=== PATIENT | female | born 1930 | race Caucasian/White ===

== ENCOUNTER 2016-10-07 07:45 | Emergency (ER) | payer OTHER ==
[~2016-10-07] VITALS: Ht 162.6 cm; Wt 68.0 kg
[2016-10-07 07:49] VITALS: Ht 162.6 cm; Wt 68.0 kg
[2016-10-07] MEDS ORDERED: ONDANSETRON 4 MG INJ IV STA (08:05)
[2016-10-07] MEDS ORDERED: morphine 2 MG INJ IV STA (08:05)
[2016-10-07] MEDS ORDERED: SOD CHLORIDE 0.9% 1,000 ML IV STA (08:05)
[2016-10-07] MEDS ORDERED: DIPHTH/TET/ACEL PERTUSS (ADULT) 0.5 ML VIAL IM* ONE (08:30)
--- NOTE | 2016-10-07 08:32 | RADRPT ---
PROCEDURE: XR Chest. CLINICAL INDICATION: Trauma. Left arm pain. TECHNIQUE: PA and Lateral views of the chest were obtained. COMPARISON: None. FINDINGS: The cardiomediastinal silhouette is within normal limits of size . Atherosclerotic calcification of the aorta.. .The lungs are clear without pleural effusion or focal consolidation. No pneumothorax. Degenerative changes of the glenohumeral joints with humeral head spurring bilaterally.. IMPRESSION: 1. No evidence for active cardiopulmonary disease. RPTAT:AAJJ Physician Edgar Date Time Electronically viewed and signed by Physician Edgar on 10/07/2016 08:32 MARTA/
[2016-10-07 09:24] LABS: ADD SCAN DIFF NO
[2016-10-07 09:29] LABS: BASOPHILS % 0.3 % (0.0-2.0); EOSINOPHILS % 0.2 % (0.0-7.0); HEMATOCRIT 46.1 % (37.0-47.0); HEMOGLOBIN 15.5 g/dl (12.0-16.0); LYMPHOCYTES # 1.5 10^3/ul (0.8-2.9); LYMPHOCYTES % 11.4 % (15.0-51.0); MEAN CORPUSCULAR HEMOGLOBIN 31.8 pg (29.0-33.0); MEAN CORPUSCULAR HGB CONC 33.6 g/dl (32.0-37.0); MEAN CORPUSCULAR VOLUME 94.7 fl (82.0-101.0); MEAN PLATELET VOLUME 8.8 fl (7.4-10.4); MONOCYTES % 7.8 % (0.0-11.0); NEUTROPHIL # 10.2 10^3/ul (1.6-7.5); NEUTROPHILS % 79.9 % (39.0-77.0); PLATELET COUNT 230 10^3/UL (140-415); RED BLOOD COUNT 4.87 10^6/ul (4.20-5.40); RED CELL DISTRIBUTION WIDTH 12.3 % (11.5-14.5); WHITE BLOOD COUNT 12.8 10^3/ul (4.8-10.8)
[2016-10-07 10:16] LABS: CHLORIDE 98 mmol/L (97-110); POTASSIUM 3.9 mmol/L (3.5-5.1); SODIUM 141 mmol/L (135-144)
--- NOTE | 2016-10-07 10:16 | RADRPT ---
PROCEDURE: XR left Shoulder. CLINICAL INDICATION: Trauma, fall, left arm pain. TECHNIQUE: Two views of the left shoulder are available for review. COMPARISON: None available FINDINGS: There is a transverse anatomic neck fracture of the left humerus with mild displacement. The bones are osteoporotic. The findings could represent a multi part proximal humeral fracture. The humeral head is still situated within the glenoid. There is moderate AC arthrosis. IMPRESSION: 1. Transverse anatomic neck fracture of the left humerus with mild displacement. 2. Osteoporosis. RPTAT: XX .Marshal Guillory MD, MD Date Time Electronically viewed and signed by .Marshal Guillory MD, MD on 10/07/2016 10:15 .T/
[2016-10-07 10:19] LABS: ADD UMIC YES; URINE BILIRUBIN (Dip) NEGATIVE (NEGATIVE); URINE BLOOD (Dip) 1+ (NEGATIVE); URINE COLOR LT. YELLOW (YELLOW); URINE GLUCOSE (Dip) NEGATIVE (NEGATIVE); URINE KETONES (Dip) NEGATIVE (NEGATIVE); URINE LEUKOCYTE ESTERASE (Dip) NEGATIVE (NEGATIVE); URINE NITRITE (Dip) NEGATIVE (NEGATIVE); URINE TOTAL PROTEIN (Dip) NEGATIVE (NEGATIVE); URINE UROBILINOGEN (Dip) 0.2 E.U./dL (0.1-1.0)
[2016-10-07 10:19] LABS: ALANINE AMINOTRANSFERASE 27 IU/L (13-69); ALBUMIN/GLOBULIN RATIO 1.02; ALKALINE PHOSPHATASE 73 IU/L (42-121); ANION GAP 15 (8-16); ASPARTATE AMINO TRANSFERASE 24 IU/L (15-46); BILIRUBIN,INDIRECT 0.5 mg/dl (0-1.1); BILIRUBIN,TOTAL 0.5 mg/dl (0.2-1.3); BLOOD UREA NITROGEN 14 mg/dl (7-20); CALCIUM 9.4 mg/dl (8.4-10.2); CARBON DIOXIDE 32 mmol/L (21-31); CREATININE 0.74 mg/dl (0.44-1.00); GLUCOSE 117 mg/dl (70-220); TOTAL PROTEIN 7.9 g/dl (6.1-8.1)
--- NOTE | 2016-10-07 10:20 | RADRPT ---
PROCEDURE: XR Left Elbow. CLINICAL INDICATION: Trauma, fall.. TECHNIQUE: Three views of the left elbow are available for review. COMPARISON: None available FINDINGS: No evidence for elbow fracture. There is chronic lateral epicondylitis with ossification in the reg ion of the common extensor tendon. There is a moderate joint effusion. There is olecranon enthesop athy. The bones are osteoporotic. IMPRESSION: 1. Osteoporosis. 2. No fracture is seen. 3. Degenerative arthrosis and chronic lateral epicondylitis. RPTAT: XX .Marshal Guillory MD, MD Date Time Electronically viewed and signed by .Marshal Guillory MD, on 10/07/2016 10:20 .T/
[2016-10-07 10:32] LABS: TROPONIN-I < 0.012 ng/ml (0.00-0.12)
[2016-10-07 10:35] LABS: BACTERIA,URINE RARE
[2016-10-07] MEDS ORDERED: LEVOFLOXACIN 750MG/D5W (PMX) 150 ML IVPB ONE (11:30)
[2016-10-07] MEDS ORDERED: IBUP400T22 PO (11:38)
--- NOTE | 2016-10-07 11:42 | ERD ---
ER Documentation Chief Complaint Date/Time DATE: 10/07/16 TIME: 11:39 Chief Complaint left arm pain after fall this morning no ko HPI 86-year-old woman brought in by son after fall onto her left shoulder. The episode was witnessed and he denies that there was a loss of consciousness. Patient does recall that episode. She denies recent fevers or chills, no chest pain or palpitations, no shortness of breath, no headache or blurry vision. Patient denies head or neck injury. ROS All systems reviewed and are negative except as per history of present illness. Medications Home Meds Active Scripts Ibuprofen* (Motrin*) 400 Mg Tab, 400 MG PO Q8 for PAIN AND/OR INFLAMMATION, #30 TAB Prov:CHRISTOPHER LOCKE MD 10/07/16 Allergies Allergies: Coded Allergies: No Known Allergy (Unverified , 10/07/16) PMhx/Soc Mild dementia, hypertension, arthritis FmHx Family History: No diabetes Physical Exam Vitals Vital Signs Date Time Temp Pulse Resp B/P Pulse Ox O2 Delivery O2 Flow Rate FiO2 10/07/16 12:18 99.1 87 16 169/90 96 Room Air 10/07/16 10:10 92 15 160/83 97 Room Air 10/07/16 08:00 97.4 97 16 162/85 97 Room Air 10/07/16 07:49 96.0 96 18 164/86 96 Physical Exam GENERAL: Well-developed, well-nourished, dehydrated, afebrile HEENT: Dry mucous membranes, pink conjunctiva, no cervical spine tenderness or step-off deformities, no goiter, no jaundice or icterus, extraocular movements intact without pain. No submandibular induration, and no pharyngeal erythema NEURO: Alert and oriented 3, cranial nerves II through XII intact bilaterally, pupils equal round reactive to light, no focal deficits or facial asymmetry, sensation intact distally Strength 5/5 in upper and lower extremities bilaterally CARDIAC: Regular rate and rhythm, no murmurs rubs or gallops LUNGS: Clear bilaterally no wheezing crackles or stridor ABDOMEN: Soft nontender, no guarding, no rigidity, no rebound, no psoas sign no obturator sign. Normoactive bowel sounds SKIN: Warm and dry to touch, positive skin abrasion to the bridge of the nose, or hematomas, no lacerations, no ecchymosis, no target lesions, and without ulcers EXTREMITIES: No clubbing cyanosis left proximal lateral shoulder tenderness to touch with mild ecchymosis, sensation to the axillary, median, radial, ulnar nerves are intact bilaterally, calves are bilaterally symmetrical, no Homans sign, no popliteal cord sign. Distal pulses equal and bilateral PSYCH: Normal affect without agitation or irritability Result Diagram: 10/07/1690110/07/1602 Results 24 hrs Laboratory Tests Test 10/07/16 09:02 10/07/16 09:40 Alanine Aminotransferase (ALT/SGPT) 27IU/L Albumin 4.0g/dl Albumin/Globulin Ratio 1.02 Alkaline Phosphatase 73IU/L Anion Gap 15 Aspartate Amino Transf (AST/SGOT) 24IU/L Basophils # 0.010^3/ul Basophils % 0.3% Blood Urea Nitrogen 14mg/dl Calcium Level 9.4mg/dl Carbon Dioxide Level 32mmol/L Chloride Level 98mmol/L Creatinine 0.74mg/dl Direct Bilirubin 0.00mg/dl Eosinophils # 0.010^3/ul Eosinophils % 0.2% Globulin 3.90g/dl Glucose Level 117mg/dl Hematocrit 46.1% Hemoglobin 15.5g/dl Indirect Bilirubin 0.5mg/dl Lipase 55U/L Lymphocytes # 1.510^3/ul Lymphocytes % 11.4% Mean Corpuscular Hemoglobin 31.8pg Mean Corpuscular Hemoglobin Concent 33.6g/dl Mean Corpuscular Volume 94.7fl Mean Platelet Volume 8.8fl Monocytes # 1.010^3/ul Monocytes % 7.8% Neutrophils # 10.210^3/ul Neutrophils % 79.9% Nucleated Red Blood Cells # 0.010^3/ul Nucleated Red Blood Cells % 0.0/100WBC Platelet Count 43855^3/UL Potassium Level 3.9mmol/L Red Blood Count 4.8710^6/ul Red Cell Distribution Width 12.3% Sodium Level 141mmol/L Total Bilirubin 0.5mg/dl Total Protein 7.9g/dl Troponin I < 0.012ng/ml White Blood Count 12.810^3/ul Urine Bacteria RARE Urine Bilirubin NEGATIVE Urine Clarity CLEAR Urine Color LT. YELLOW Urine Glucose NEGATIVE% Urine Hemoglobin 1+ Urine Ketones NEGATIVE Urine Leukocyte Esterase NEGATIVE Urine Microscopic RBC 2-5/HPF Urine Microscopic WBC 0-2/HPF Urine Nitrite NEGATIVE Urine Specific [place] 1.015 Urine Total Protein NEGATIVE Urine Urobilinogen 0.2 E.U./dL Urine pH 6.0 Current Medications Medications (Trade) Dose Ordered Sig/Lyndsey Route PRN Reason Start Time Stop Time Status Last Admin Dose Admin Diphtheria/ Tetanus/Acell Pertussis 0.5 ml 0.5 ml ONCE ONCE IM* 10/07/16 08:30 10/07/16 08:31 DC 10/07/16 09:16 Sodium Chloride (NS) 1,000 ml @ 1,000 mls/hr Q1H STAT IV 10/07/16 08:05 10/07/16 09:04 DC 10/07/16 09:17 Morphine Sulfate (morphine) 2 mg ONCE STAT IV 10/07/16 08:05 10/07/16 08:08 DC 10/07/16 09:16 Ondansetron HCl 4 mg 4 mg ONCE STAT IV 10/07/16 08:05 10/07/16 08:08 DC 10/07/16 09:15 Levofloxacin/ Dextrose (Levaquin 750 Mg/ D5W 150 ml (Pmx)) 150 ml @ 100 mls/hr ONCE ONCE IVPB 10/07/16 11:30 10/07/16 11:44 DC Ibuprofen (Motrin) 200 mg STK-MED ONCE .ROUTE 10/07/16 12:26 10/07/16 12:27 DC Procedures/MDM IV line was established patient was placed on clinical research monitor rhythm strip revealed a sinus rhythm at about 100 bpm with upright P and T waves. Patient was afebrile. EKG performed, read by me: 94 bpm, normal sinus rhythm, normal axis, no acute ST segment changes, narrow QRS complex, with good R-wave progression in precordial leads. I administered 1 L normal saline intravenously, morphine 2 mg IV, Zofran 4 mg IV , ibuprofen 600 mg p.o., and tetanus toxoid 0.[address] scan of the brain was performed there is negative for acute bleed mass or shift. Chest X-ray 1V Interpreted by me: Soft Tissue: No acute abnormalities Bones: No acute abnormalities Mediastinum/Cardiac Silhouette/Lungs: No acute abnormalities X-ray left shoulder 3V Interpreted by me: Bones: Acute transverse proximal left humerus fracture Joints: No dislocation Foreign body: None X-ray left elbow 3V Interpreted by me: Fat Pads: Normal Bones: No fracture Joints: No dislocation Foreign body: None I placed the left upper extremity in a sling with the elbow flexed to 90. Splint Assessment: Neurovascularly intact post splint placement with good fit. CBC and electrolytes were normal, liver function tests were normal, troponin was negative. Urine analysis was negative for infection. Differential diagnoses considered, included but not limited to acute coronary syndrome, pulmonary embolism, aortic dissection, abdominal aortic aneurysm, sepsis, stroke, meningitis, encephalitis, pneumonia, appendicitis, cholecystitis , bowel obstruction, pyelonephritis, nephrolithiasis, cystitis, as well as metabolic, hematologic, and electrolyte abnormalities. As well as abscess, cellulitis, fractures, and dislocations. Patient feels much better at this time, and vital signs are normal, symptoms have improved. I did give strict instructions to return to the ED if symptoms continue or worsen, patient will otherwise follow-up with primary care physician. Patient understood instructions and agreed to plan. Departure Diagnosis: Primary Impression: Shoulder fracture Encounter type: initial encounter Fracture type: closed Laterality: left Qualified Code: S42.92XA - Shoulder fracture, left, closed, initial encounter Condition: Good Patient Instructions: Dehydration, Fracture, Shoulder CHRISTOPHER LOCKE MD Oct 07, 2016 11:41
[2016-10-07 12:18] VITALS: BP 169/90; PULSE 87; RESP 16; TEMP 99.1
[2016-10-07] MEDS ORDERED: IBUPROFEN 200 MG TAB ONE (12:26)
--- NOTE | 2016-10-07 22:18 | RADRPT ---
PROCEDURE: CT Brain without. CLINICAL INDICATION: Fall, forehead trauma. TECHNIQUE: A CT of the brain was performed on multidetector high-resolution CT scanner utilizing a xial sections from the skull base through the vertex without contrast. The scan was reviewed in sof t tissue brain and high frequency resolution bone algorithm windows. Images were reviewed on a high -resolution PACS workstation. One or more the following does reduction techniques were utilized: Aut omated exposure control, adjustment of the mA/ or kV according to patient's size, or use of iterativ e reconstruction technique. The exam CTDI = 38.62 mGy and the DLP = 634.23 mGy-cm. COMPARISON: None available. FINDINGS: There is a 5 mm focus of hyperdensity in the peripheral posterior right superior frontal gyrus which is concerning for small focus of subarachnoid hemorrhage versus a small hemorrhagic contusion. The ventricles and sulci are mildly to moderately prominent indicative of volume loss. There is no intracranial mass effect or midline shift. No abnormal intra-axial or extra-axial fluid collections are seen. The ortiz/white matter differentiation is preserved. There are mild scattered foci of hypoattenuation in the white matter, which are nonspecific in etiol ogy but likely reflect chronic small vessel ischemic changes. There are mild intracranial vascular calcifications consistent with atherosclerosis. The visualized paranasal sinuses are essentially july ar. IMPRESSION: 1. A 5 mm focus of subarachnoid hemorrhage versus hemorrhagic contusion in the peripheral posterior right superior frontal gyrus. 2. No acute transcortical infarction or mass effect. 3. Mild intracranial atherosclerosis and chronic small vessel ischemic changes. 4. Mild to moderate generalized cerebral volume loss. Critical result: A call report was made and above findings were discussed and acknowledged by Dr. Gutierrez on 10/07/2016 10:11 PM. RPTAT: HFN .Alonso Castaneda MD, MD Date Time Electronically viewed and signed by .Alonso Castaneda MD, MD on 10/07/2016 22:18 .N/
--- NOTE | 2016-10-07 22:25 | QN ---
Documentation Comment Time: 22:10 Received a call from Radiology, regarding CT brain performed earlier today that reveals findings consistent with a small subarachnoid hemorrhage versus hemorrhagic contusion. Patient will be contacted by the charge nurse Coretta with instructions to return to the ED for follow-up and repeat CT scan. PROCEDURE: CT Brain without. CLINICAL INDICATION: Fall, forehead trauma. TECHNIQUE: A CT of the brain was performed on multidetector high-resolution CT scanner utilizing axial sections from the skull base through the vertex without contrast. The scan was reviewed in soft tissue brain and high frequency resolution bone algorithm windows. Images were reviewed on a high- resolution PACS workstation. One or more the following does reduction techniques were utilized: Automated exposure control, adjustment of the mA/ or kV according to patient's size, or use of iterative reconstruction technique. The exam CTDI = 38.62 mGy and the DLP = 634.23 mGy-cm. COMPARISON: None available. FINDINGS: There is a 5 mm focus of hyperdensity in the peripheral posterior right superior frontal gyrus which is concerning for small focus of subarachnoid hemorrhage versus a small hemorrhagic contusion. The ventricles and sulci are mildly to moderately prominent indicative of volume loss. There is no intracranial mass effect or midline shift. No abnormal intra-axial or extra-axial fluid collections are seen. The ortiz/white matter differentiation is preserved. There are mild scattered foci of hypoattenuation in the white matter, which are nonspecific in etiology but likely reflect chronic small vessel ischemic changes. There are mild intracranial vascular calcifications consistent with atherosclerosis. The visualized paranasal sinuses are essentially clear. IMPRESSION: 1. A 5 mm focus of subarachnoid hemorrhage versus hemorrhagic contusion in the peripheral posterior right superior frontal gyrus. 2. No acute transcortical infarction or mass effect. 3. Mild intracranial atherosclerosis and chronic small vessel ischemic changes. 4. Mild to moderate generalized cerebral volume loss. Critical result: A call report was made and above findings were discussed and acknowledged by Dr. Islas on 10/07/2016 10:11 PM. RPTAT: HFN .Alonso Castaneda MD, MD Date Time Electronically viewed and signed by .Alonso Castaneda MD, MD on 10/07/2016 22: 18 .N/ HERI ISLAS MD Oct 07, 2016 22:25
[2016-10-08] MEDS ORDERED: DOCU-144 PO (13:47)
[2016-10-08] MEDS ORDERED: POLY17PO6 PO (13:47)
== END 2016-10-07 12:50 | disposition home or self-care (01) ==
LOC: E/R 07:45
DX: S42.92XA Fracture of left shoulder girdle, part unspecified, initial encounter for closed fracture (principal); R40.2252 Coma scale, best verbal response, oriented, at arrival to emergency department; I10 Essential (primary) hypertension; R40.2142 Coma scale, eyes open, spontaneous, at arrival to emergency department; R40.2362 Coma scale, best motor response, obeys commands, at arrival to emergency department; G93.89 Other specified disorders of brain; W18.39XA Other fall on same level, initial encounter; Y92.9 Unspecified place or not applicable; Z23 Encounter for immunization
CPT/HCPCS: 36415; 70450; 71010; 73030; 73080; 80053; 81001; 83690; 84484; 85025; 90471; 90715; 93005; 96374; 96375; J2270; J2405; J7030; P9612; Z7502; Z7610; 81003

== ENCOUNTER 2016-10-08 12:14 | Emergency (ER) | payer OTHER ==
[~2016-10-08] VITALS: Ht 154.9 cm; Wt 71.0 kg
[~2016-10-08 12:14] MED LIST: IBUP400T22 PO
[2016-10-08 12:18] VITALS: Ht 154.9 cm; Wt 71.0 kg
[2016-10-08] MEDS ORDERED: SOD CHLORIDE 0.9% 500 ML IV STA (12:56)
--- NOTE | 2016-10-08 13:38 | RADRPT ---
PROCEDURE: CT head without Contrast CLINICAL INDICATION: Status post fall, head injury follow-up rule out bleed TECHNIQUE: Transaxial images were made through the head on a multi-slice scanner without intraveno us contrast. Coronal and sagittal images were subsequently reformatted. One or more of the following dose reduction techniques were used: - Automated exposure control. - Adjustment of the mA and/or kV according to patient size. - Use of iterative reconstruction technique. Radiation dose: CTDIvol = 37.80 mGy; DLP = 634.23 mGy-cm. COMPARISON: 10/07/2016 FINDINGS: The calvarium appears intact. The mastoid air cells and paranasal sinuses are well-aerated.. The ventricles are mildly dilated but proportionate to the prominent fissures and sulci compatible w ith moderate cortical volume loss. There is no midline shift. Patchy hypodensity is again seen within the deep periventricular white matter tracts compatible with chronic small vessel ischemic change. There is been no significant interval change to the 5 mm punctate densities seen at the high right f rontal convexity crosses for a small petechial bleed. No new bleed is identified. No mass or extraaxial fluid collection is evident. Mild atherosclerotic vascular calcification is a gain noted. IMPRESSION: 1. Since the previous CT of 10/07/2016, there has been no significant interval change with regards to the 5 mm density seen at the high right frontal convexity suspicious for a tiny intraparenchymal hemorrhage. 2. Mild diffuse cortical atrophy with chronic-appearing central small vessel ischemic change. 2. Mild atherosclerotic vascular calcification is again noted. Physician Joan Date Time Electronically viewed and signed by Physician Joan on 10/08/2016 13:38 /
[2016-10-08] MEDS ORDERED: POLY17PO6 PO (13:47)
[2016-10-08] MEDS ORDERED: DOCU-144 PO (13:47)
--- NOTE | 2016-10-08 14:00 | ERD ---
ER Documentation Chief Complaint Date/Time DATE: 10/08/16 TIME: 13:56 Chief Complaint WAS SEEN HERE FOR LT SHOULDER FX , CALLED TO COME BACK TODAY HPI This is an 86-year-old woman called back from this emergency department for reevaluation and repeat CT scan of the brain. She was seen and evaluated yesterday by me and a CT scan of the brain was performed at about 8:30 AM to rule out acute or life-threatening traumatic hemorrhage. The radiologist called and officially read the CT scan about 14 hours later as positive for a small 5 mm subarachnoid hemorrhage versus hemorrhagic contusion. Son states over the ensuing 24 hours patient has had no complaints of headache and her dizziness has mostly resolved. Yesterday's complaints included dizziness which was much more severe. He states she has no complaints of headache and only has intermittent mild to moderate left shoulder pain. She has been using ibuprofen 400 mg as prescribed. She has had no slurred speech, no weakness in her arms or legs, no other falls, no complaints of blurry vision, no neck pain or stiffness. She has also increased her oral fluid intake to maintain hydration as recommended by me yesterday. Complaints today include constipation. ROS All systems reviewed and are negative except as per history of present illness. Medications Home Meds Active Scripts Polyethylene Glycol* (Miralax*) 17 Gm Powd.pack, 17 GM PO DAILY for CONSTIPATION , #7 Prov:CHRISTOPHER LOCKE MD 10/08/16 Docusate Sodium* (Colace*) 100 Mg Capsule, 100 MG PO TID for CONSTIPATION, #30 CAP Prov:CHRISTOPHER LOCKE MD 10/08/16 Ibuprofen* (Motrin*) 400 Mg Tab, 400 MG PO Q8 for PAIN AND/OR INFLAMMATION, #30 TAB Prov:CHRISTOPHER LOCKE MD 10/07/16 Allergies Allergies: Coded Allergies: No Known Allergy (Unverified , 10/07/16) PMhx/Soc Constipation Medical and Surgical Hx: pt denies Medical Hx, pt denies Surgical Hx History of Surgery: Yes Hx Alcohol Use: No Hx Substance Use: No Hx Tobacco Use: No Smoking Status: Never smoker FmHx Family History: No diabetes Physical Exam Vitals Vital Signs Date Time Temp Pulse Resp B/P Pulse Ox O2 Delivery O2 Flow Rate FiO2 10/08/16 12:18 97.9 94 18 143/81 98 Physical Exam GENERAL: Well-developed, well-nourished, well-hydrated, in no apparent distress , looks nontoxic in appearance HEENT: Moist mucous membranes, pink conjunctiva, no cervical spine tenderness or step-off deformities, no goiter, no jaundice or icterus, extraocular movements intact without pain. No submandibular induration, and no pharyngeal erythema NEURO: Alert and oriented 3, cranial nerves II through XII intact bilaterally, pupils equal round reactive to light, no focal deficits or facial asymmetry, sensation intact distally Strength 5/5 in upper and lower extremities bilaterally CARDIAC: Regular rate and rhythm, no murmurs rubs or gallops LUNGS: Clear bilaterally no wheezing crackles or stridor ABDOMEN: Soft nontender, no guarding, no rigidity, no rebound, no psoas sign no obturator sign. Normoactive bowel sounds SKIN: Warm and dry to touch, abrasion to the bridge of the nose, contusions, or hematomas, no lacerations, no ecchymosis, no target lesions, and without ulcers EXTREMITIES: No clubbing cyanosis or edema, left upper extremity is in a sling, calves are bilaterally symmetrical, no Homans sign, no popliteal cord sign. Distal pulses equal and bilateral PSYCH: Normal affect without agitation or irritability Results 24 hrs Current Medications Medications (Trade) Dose Ordered Sig/Lyndsey Route PRN Reason Start Time Stop Time Status Last Admin Dose Admin Sodium Chloride (NS) 500 ml @ 500 mls/hr Q1H STAT IV 10/08/16 12:56 10/08/16 13:10 DC Procedures/MDM CT scan of the brain was performed and reveals the same 5 mm punctate hemorrhage concerning for either a small subarachnoid bleed versus contusion. Please refer to the radiologist dictation for full report, although we did discuss the images over the phone and he stated there were no changes. I obtain neurosurgical consultation with Dr. branch wholesale diamond broker. We spoke about the patient's symptoms yesterday and today, her CT scan findings, and the events over the last 24 hours. He stated if the CT today is not significantly changed she may safely be discharged as there will be no neurosurgical intervention required. She has already had her 24 hour observation under the care of her son who lives with her. I repeated the patient's neurologic exam just prior to discharge. She is without complaints of headache, she has no focal deficits or facial asymmetry, pupils equal round reactive to light, alert and oriented 3. Patient feels much better at this time, and vital signs are normal, symptoms have improved. I did give strict instructions to return to the ED if symptoms continue or worsen, patient will otherwise follow-up with primary care physician. Patient understood instructions and agreed to plan. Departure Diagnosis: Primary Impression: Subarachnoid bleed Additional Impression: Constipation Constipation type: unspecified constipation type Qualified Code: K59.00 - Constipation, unspecified constipation type Condition: Good Patient Instructions: Constipation (Adult) CHRISTOPHER LOCKE MD Oct 08, 2016 14:00
[2016-10-08 14:03] VITALS: BP 152/82; PULSE 92; RESP 20; TEMP 98.3
== END 2016-10-08 14:04 | disposition home or self-care (01) ==
LOC: E/R 12:14
DX: I60.9 Nontraumatic subarachnoid hemorrhage, unspecified (principal); G93.89 Other specified disorders of brain
CPT/HCPCS: 70450; Z7502; J7040

== ENCOUNTER 2016-10-15 15:31 | Emergency (ER) | payer OTHER ==
[~2016-10-15] VITALS: Wt 80.0 kg
[~2016-10-15 15:31] MED LIST changes: +DOCU-144 PO; +POLY17PO6 PO
--- NOTE | 2016-10-15 16:48 | RADRPT ---
PROCEDURE: CT Head without contrast. CLINICAL INDICATION: confused, recent fall TECHNIQUE: Continuous axial CT images were obtained from the base of skull to the vertex. No cont rast was administered. The calculated radiation dose measures 720 mGy centimeters. The CTDI measures 44 mGy COMPARISON: 10/08/2016 FINDINGS: There is mild to moderate diffuse cerebral volume loss. The ventricles are symmetric and normal in configuration. There is no mass effect or midline shift. There is no abnormal intra-axial or extra -axial fluid collection. There is no evidence of intracranial hemorrhage. There are scattered areas of decreased attenuation in the supratentorial white matter, consistent wi th mild to moderate small vessel ischemic changes. There is mild to moderate atherosclerotic vascula r calcification. The bony calvarium is intact. The orbital soft tissue contents are unremarkable. Paranasal sinuses appear clear. IMPRESSION: 1. Mild to moderate age related cerebral volume loss. Mild to moderate small vessel ischemic christy es. 2. Mild to moderate atherosclerotic vascular calcification. 3. No mass effect or acute intracranial bleed. A previous right frontal small parenchymal bleed ap pears resolved. RPTAT: HBST .Oswald Chan MD, MD Date Time Electronically viewed and signed by .Oswald Chan MD, on 10/15/2016 16:47 .T/
[2016-10-15] MEDS ORDERED: TRAM-40 PO (17:10)
[2016-10-15 17:38] LABS: ADD UMIC YES; URINE BILIRUBIN (Dip) NEGATIVE (NEGATIVE); URINE BLOOD (Dip) TRACE (NEGATIVE); URINE COLOR LT. YELLOW (YELLOW); URINE GLUCOSE (Dip) NEGATIVE (NEGATIVE); URINE KETONES (Dip) NEGATIVE (NEGATIVE); URINE LEUKOCYTE ESTERASE (Dip) 1+ (NEGATIVE); URINE NITRITE (Dip) NEGATIVE (NEGATIVE); URINE TOTAL PROTEIN (Dip) NEGATIVE (NEGATIVE); URINE UROBILINOGEN (Dip) 4.0 E.U./dL (0.1-1.0)
[2016-10-15 17:57] LABS: URINE RBCS 0-2 /HPF (0)
[2016-10-15 17:58] LABS: BACTERIA,URINE FEW; SQUAMOUS EPITHELIAL CELL,UR MODERATE
[2016-10-15] MEDS ORDERED: SENN-53 PO (18:43)
[2016-10-15] MEDS ORDERED: NITR-58 PO (18:43)
[2016-10-15] MEDS ORDERED: DOCU-144 PO (18:43)
--- NOTE | 2016-10-15 19:08 | ERD ---
ER Documentation Chief Complaint Date/Time DATE: 10/15/16 TIME: 19:05 Chief Complaint LEFT SHOULDER PAIN S/P GLF, PT TALKING EVENTS IN THE PAST, AAOX4 HPI Patient is an 86-year-old female with incontinence who presents with confusion. Please note the history and physical exam is limited secondary to the patient' s mental status. The patient was brought in by her son. She had a fall last week and broke her left shoulder. She was seen in the emergency department at that time. She did hit her head. However yesterday she started talking nonsense per the son. She has had decreased bowel movements over the past few days as well. She is taking tramadol for pain. She has had no fevers. Her primary doctor is Dr. Lazo. ROS All systems reviewed and are negative except as per history of present illness. Medications Home Meds Active Scripts Docusate Sodium* (Colace*) 100 Mg Capsule, 100 MG PO BID, #60 CAP Prov:LAURIE COLES MD 10/15/16 Sennosides* (Senna Lax*) 8.6 Mg Tablet, 1 TAB PO DAILY, #30 TAB Prov:LAURIE COLES MD 10/15/16 Nitrofurantoin Monohyd Macrocr* (Macrobid*) 100 Mg Capsr, 100 MG PO BID for 7 Days, CAP Prov:LAURIE COLES MD 10/15/16 Polyethylene Glycol* (Miralax*) 17 Gm Powd.pack, 17 GM PO DAILY for CONSTIPATION , #7 Prov:CHRISTOPHER LOCKE MD 10/08/16 Docusate Sodium* (Colace*) 100 Mg Capsule, 100 MG PO TID for CONSTIPATION, #30 CAP Prov:CHRISTOPHER LOCKE MD 10/08/16 Ibuprofen* (Motrin*) 400 Mg Tab, 400 MG PO Q8 for PAIN AND/OR INFLAMMATION, #30 TAB Prov:CHRISTOPHER LOCKE MD 10/07/16 Reported Medications Tramadol Hcl* (Ultram*) 50 Mg Tablet, 50 MG PO BID Y for PAIN, TAB 10/15/16 Allergies Allergies: Coded Allergies: No Known Allergy (Unverified , 10/07/16) PMhx/Soc Medical and Surgical Hx: Unable to obtain History of Surgery: Yes Hx Alcohol Use: No Hx Substance Use: No Hx Tobacco Use: No Smoking Status: Never smoker FmHx Family History: No diabetes Physical Exam Vitals Vital Signs Date Time Temp Pulse Resp B/P Pulse Ox O2 Delivery O2 Flow Rate FiO2 10/15/16 16:56 92 10 141/91 94 Room Air 10/15/16 15:38 98.5 103 18 129/75 98 Physical Exam Const: No acute distress Head: Atraumatic Eyes: Normal Conjunctiva ENT: Normal External Ears, Nose and Mouth. Neck: Full range of motion..~ No meningismus. Resp: Clear to auscultation bilaterally Cardio: Regular rate and rhythm, no murmurs Abd: Soft, non tender, non distended. Normal bowel sounds Skin: No petechiae or rashes Back: No midline or flank tenderness Ext: Left upper extremity in sling from recent humerus fracture Neur: Awake but confused per the son and this is different from her usual baseline Results 24 hrs Laboratory Tests Test 10/15/16 16:55 Urine Amorphous Urates MODERATE Urine Bacteria FEW Urine Bilirubin NEGATIVE Urine Clarity SLIGHTLY CLOUDY Urine Color LT. YELLOW Urine Glucose NEGATIVE% Urine Hemoglobin TRACE Urine Ketones NEGATIVE Urine Leukocyte Esterase 1+ Urine Microscopic RBC 0-2/HPF Urine Microscopic WBC 10-25/HPF Urine Nitrite NEGATIVE Urine Specific [place] 1.010 Urine Squamous Epithelial Cells MODERATE Urine Total Protein NEGATIVE Urine Urobilinogen 4.0 E.U./dL Urine pH 6.5 Procedures/MDM CT brain shows no acute process per radiology. Urinalysis shows acute infection. Urine culture is pending. Patient is an 86-year-old female presents with altered mental status. She was found to have acute cystitis on her urinalysis. Her vital signs are stable and at this point I do not believe she requires further workup or admission to the hospital at this time. I believe the cause of her altered mental status is likely to UTI. The patient will be given a prescription for Macrobid as well as Colace and senna for constipation. The CT brain shows no intracranial hemorrhage or skull fracture. Urine culture is pending. The patient could return for any worsening symptoms. Family feels comfortable taking her home at this time. Departure Diagnosis: Primary Impression: Constipation Constipation type: unspecified constipation type Qualified Code: K59.00 - Constipation, unspecified constipation type Additional Impressions: Altered mental status Altered mental status type: unspecified Qualified Code: R41.82 - Altered mental status, unspecified altered mental status type Cystitis Condition: Fair Patient Instructions: Cystitis, Constipation (Adult) Additional Instructions: Call your primary care doctor TOMORROW for an appointment during the next 1-2 days.See the doctor sooner or return here if your condition worsens before your appointment time. LAURIE COLES MD Oct 15, 2016 19:07
[2016-10-15 19:38] VITALS: BP 133/87; PULSE 88; RESP 10; TEMP 98.6
== END 2016-10-15 19:39 | disposition home or self-care (01) ==
LOC: E/R 15:31
DX: K59.00 Constipation, unspecified (principal); N30.90 Cystitis, unspecified without hematuria
CPT/HCPCS: 70450; 81001; 87086; Z7502; Z7610; 81003; 99284; A4310

== ENCOUNTER 2017-02-28 20:55 | Emergency (ER) | payer OTHER ==
[~2017-02-28] VITALS: Ht 157.5 cm; Wt 73.5 kg
[~2017-02-28 20:55] MED LIST changes: +NITR-58 PO; +SENN-53 PO; +TRAM-40 PO
[2017-02-28 21:01] VITALS: Ht 157.5 cm; Wt 73.5 kg
[2017-02-28] MEDS ORDERED: ONDANSETRON 4 MG INJ IV STA (22:29)
[2017-02-28] MEDS ORDERED: KETOROLAC 15 MG INJ IV STA (22:29)
[2017-02-28] MEDS ORDERED: SOD CHLORIDE 0.9% 500 ML IV STA (22:29)
--- NOTE | 2017-02-28 23:32 | RADRPT ---
PROCEDURE: XR Chest. CLINICAL INDICATION: Chest pain status post trauma TECHNIQUE: AP Portable chest. 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 The appearance of bilateral humeral fractures are suggested and recommend bilateral shoulder series.. No focal infiltrates, masses, or effusions are noted. The mediastinum and heart are remarkable for vascular calcifications of the thoracic aorta and mild cardiomegaly. No pneumothorax is present. IMPRESSION: 1. No radiographic evidence for acute cardiopulmonary disease 2. Mild cardiomegaly and atherosclerotic vascular disease. 3. Suspect bilateral humeral neck fractures and possible dislocations. Recommend dedicated bilater al shoulder series. RPTAT: HDC .Nery Angeles MD, Date Time Electronically viewed and signed by .Nery Angeles MD, on 02/28/2017 23:32 .C/
[2017-02-28 23:37] LABS: ADD UMIC YES; UR ASCORBIC ACID NEGATIVE (NEGATIVE); UR BILIRUBIN (Dip) NEGATIVE (NEGATIVE); UR BLOOD (Dip) 2+ mg/dL (NEGATIVE); UR CLARITY CLEAR (CLEAR); UR COLOR YELLOW (YELLOW); UR GLUCOSE (Dip) NEGATIVE (NEGATIVE); UR KETONES (Dip) TRACE mg/dL (NEGATIVE); UR LEUKOCYTE ESTERASE (Dip) NEGATIVE Leu/ul (NEGATIVE); UR NITRITE (Dip) NEGATIVE (NEGATIVE); UR RBC 9 /HPF (0-5); UR TOTAL PROTEIN (Dip) NEGATIVE (NEGATIVE); UR UROBILINOGEN (Dip) NEGATIVE (NEGATIVE)
--- NOTE | 2017-02-28 23:38 | RADRPT ---
PROCEDURE: Right Shoulder series CLINICAL INDICATION: Pain status post fall TECHNIQUE: AP and transscapular views of the right shoulder. COMPARISON: None available other than chest x-ray same date FINDINGS: An acute right comminuted, closed, humeral neck fracture is noted with the appearance of anterior di slocation of the right humeral diaphysis with respect to the right humeral head and proximal neck. T he visualized right hemithorax and ribs are normal. Severe right acromioclavicular osteoarthropathy is present. Joint space narrowing and soft tissue swelling is present of the right shoulder. No ra diodense foreign bodies are present. IMPRESSION: 1. Acute right humeral neck close, comminuted, fracture with anterior dislocation of the right delano ral diaphysis with respect to the right humeral head and proximal neck. Consider CT to further evalu ate. 2. Soft tissue swelling RPTAT: HDC .Nery Angeles MD, Date Time Electronically viewed and signed by .Nery Angeles MD, on 02/28/2017 23:38 .C/
--- NOTE | 2017-02-28 23:43 | RADRPT ---
PROCEDURE: Right elbow series CLINICAL INDICATION: Pain status post trauma TECHNIQUE: AP oblique and lateral views COMPARISON: None available other than comparison left elbow dated 10/07/2016 FINDINGS: No acute fractures or dislocations are present. An olecranon spur is present. Well corticated ossi fic density is noted adjacent to the right lateral distal humeral condyle compatible with sequela of prior injury and for degenerative changes. No evidence for elbow effusion is present. IMPRESSION: 1. No acute fractures or dislocations are present. 2. Olecranon spur 3. Sequela of prior trauma or degenerative change with well corticated ossific densities adjacent t o the lateral distal humeral condyle. RPTAT: HDC .Nery Angeles MD, Date Time Electronically viewed and signed by .Nery Angeles MD, on 02/28/2017 23:42 .C/
--- NOTE | 2017-02-28 23:50 | ERA ---
ER Documentation Chief Complaint Date/Time DATE: 02/28/17 TIME: 23:49 Chief Complaint s/p fall at home, pain on head and right shoulder. no KO HPI 87-year-old woman brought in by family members for trip and fall while at home today. She fell onto her right side and struck her forehead against the counter. The episode was witnessed and there was no loss of consciousness. She has complaints of pain to the shoulder and deformity, no paresis or paresthesias, no chest pain or shortness of breath, no vomiting or diarrhea. Patient has been able to ambulate without difficulty. ROS All systems reviewed and are negative except as per history of present illness. Medications Home Meds Reported Medications Duloxetine Hcl* (Duloxetine Hcl*) 30 Mg Capsule.dr, 30 MG PO DAILY, #30 CAP 03/01/17 Risperidone* (Risperidone*) 2 Mg Tablet, 2 MG PO QHS, TAB 03/01/17 Fluoxetine Hcl* (Fluoxetine Hcl*) 20 Mg Capsule, 20 MG PO DAILY, CAP 03/01/17 Discontinued Reported Medications Tramadol Hcl* (Ultram*) 50 Mg Tablet, 50 MG PO BID Y for PAIN, TAB 10/15/16 Discontinued Scripts Docusate Sodium* (Colace*) 100 Mg Capsule, 100 MG PO BID, #60 CAP Prov:LAURIE COLES MD 10/15/16 Sennosides* (Senna Lax*) 8.6 Mg Tablet, 1 TAB PO DAILY, #30 TAB Prov:LAURIE COLES MD 10/15/16 Nitrofurantoin Monohyd Macrocr* (Macrobid*) 100 Mg Capsr, 100 MG PO BID for 7 Days, CAP Prov:LAURIE COLES MD 10/15/16 Polyethylene Glycol* (Miralax*) 17 Gm Powd.pack, 17 GM PO DAILY for CONSTIPATION , #7 Prov:CHRISTOPHER LOCKE MD 10/08/16 Docusate Sodium* (Colace*) 100 Mg Capsule, 100 MG PO TID for CONSTIPATION, #30 CAP Prov:CHRISTOPHER LOCKE MD 10/08/16 Ibuprofen* (Motrin*) 400 Mg Tab, 400 MG PO Q8 for PAIN AND/OR INFLAMMATION, #30 TAB Prov:CHRISTOPHER LOCKE MD 10/07/16 Allergies Allergies: Coded Allergies: No Known Allergy (Unverified , 03/01/17) PMhx/Soc Hypertension, dementia, previous subarachnoid hemorrhage History of Surgery: No Anesthesia Reaction: No Hx Neurological Disorder: No Hx Respiratory Disorders: No Hx Cardiac Disorders: No Hx Psychiatric Problems: Yes (DEPRESSION) Hx Miscellaneous Medical Probl: No Hx Alcohol Use: No Hx Substance Use: No Hx Tobacco Use: No Smoking Status: Never smoker FmHx Family History: No diabetes Physical Exam Vitals Vital Signs Date Time Temp Pulse Resp B/P Pulse Ox O2 Delivery O2 Flow Rate FiO2 02/28/17 22:27 98.0 90 20 175/99 97 Room Air 02/28/17 21:01 98.1 84 20 187/112 97 Physical Exam GENERAL: Well-developed, well-nourished, well-hydrated, in no apparent distress , looks nontoxic in appearance HEENT: Moist mucous membranes, pink conjunctiva, no cervical spine tenderness or step-off deformities, no goiter, no jaundice or icterus, extraocular movements intact without pain. No submandibular induration, and no pharyngeal erythema NEURO: Alert and oriented 2, able to answer simple questions and follow simple commands. cranial nerves II through XII intact bilaterally, pupils equal round reactive to light, no focal deficits or facial asymmetry, sensation intact distally Strength 5/5 in upper and lower extremities bilaterally CARDIAC: Regular rate and rhythm, no murmurs rubs or gallops LUNGS: Clear bilaterally no wheezing crackles or stridor ABDOMEN: Soft nontender, no guarding, no rigidity, no rebound, no psoas sign no obturator sign. Normoactive bowel sounds SKIN: Warm and dry to touch, no abrasions, contusions, or hematomas, no lacerations, no ecchymosis, no target lesions, and without ulcers EXTREMITIES: Soft tissue swelling and tenderness to the right shoulder, distal pulses equal bilateral, sensation to the median, ulnar, radial, axillary nerves intact and equal bilaterally PSYCH: Normal affect without agitation or irritability Result Diagram: 02/28/17 2300 02/28/17 2250 Results 24 hrs Laboratory Tests Test 02/28/17 22:50 02/28/17 23:00 02/28/17 23:11 Sodium Level 139mmol/L Potassium Level 5.0mmol/L Chloride Level 96mmol/L Carbon Dioxide Level 29mmol/L Anion Gap 19 Blood Urea Nitrogen 16mg/dl Creatinine 0.71mg/dl Glucose Level 105mg/dl Calcium Level 9.6mg/dl Total Bilirubin 0.5mg/dl Direct Bilirubin 0.00mg/dl Indirect Bilirubin 0.5mg/dl Aspartate Amino Transf (AST/SGOT) 36IU/L Alanine Aminotransferase (ALT/SGPT) 21IU/L Alkaline Phosphatase 67IU/L Troponin I < 0.012ng/ml Total Protein 8.4g/dl Albumin 4.3g/dl Globulin 4.10g/dl Albumin/Globulin Ratio 1.04 Lipase 88U/L White Blood Count 20.610^3/ul Red Blood Count 4.9810^6/ul Hemoglobin 15.6g/dl Hematocrit 45.9% Mean Corpuscular Volume 92.2fl Mean Corpuscular Hemoglobin 31.3pg Mean Corpuscular Hemoglobin Concent 34.0g/dl Red Cell Distribution Width 12.3% Platelet Count 99743^3/UL Mean Platelet Volume 9.5fl Neutrophils % 83.4% Lymphocytes % 8.6% Monocytes % 6.6% Eosinophils % 0.1% Basophils % 0.3% Nucleated Red Blood Cells % 0.0/100WBC Neutrophils # 17.210^3/ul Lymphocytes # 1.810^3/ul Monocytes # 1.410^3/ul Eosinophils # 0.010^3/ul Basophils # 0.110^3/ul Nucleated Red Blood Cells # 0.010^3/ul Urine Color YELLOW Urine Clarity CLEAR Urine pH 5.0 Urine Specific [place] 1.020 Urine Ketones TRACEmg/dL Urine Nitrite NEGATIVEmg/dL Urine Bilirubin NEGATIVEmg/dL Urine Urobilinogen NEGATIVEmg/dL Urine Leukocyte Esterase NEGATIVELeu/ul Urine Microscopic RBC 9/HPF Urine Microscopic WBC 0/HPF Urine Hemoglobin 2+mg/dL Urine Glucose NEGATIVEmg/dL Urine Total Protein NEGATIVEmg/dl Current Medications Medications (Trade) Dose Ordered Sig/Lyndsey Route PRN Reason Start Time Stop Time Status Last Admin Dose Admin Sodium Chloride (NS) 500 ml @ 500 mls/hr Q1H STAT IV 02/28/17 22:29 02/28/17 23:28 DC 02/28/17 22:57 Ondansetron HCl (Zofran Inj) 4 mg ONCE STAT IV 02/28/17 22:29 02/28/17 22:35 DC 02/28/17 22:57 Ketorolac Tromethamine (Toradol) 15 mg ONCE STAT IV 02/28/17 22:29 02/28/17 22:35 DC 02/28/17 22:57 Procedures/MDM IV line was established patient was placed on monitoring analyst rhythm strip revealed a sinus rhythm at about 80 bpm with upright P and T waves. Patient was afebrile. EKG performed, read by me: 86 bpm, normal sinus rhythm, normal axis, no acute ST segment changes, narrow QRS complex, with good R-wave progression in precordial leads. Chest X-ray 1V Interpreted by me: Soft Tissue: No acute abnormalities Bones: Acute proximal right humerus fracture Mediastinum/Cardiac Silhouette/Lungs: No acute abnormalities CT scan of the brain was performed there is negative for acute bleed mass or shift. X-ray Shoulder 3V Interpreted by me: Bones: Acute proximal right humerus fracture dislocation at the humeral neck acute right humerus fracture dislocation at humerus neck Joints: No dislocation Foreign body: None CBC revealed a leukocytosis, electrolytes unremarkable, liver function tests normal, troponin negative. Urine analysis was negative for infection. Right shoulder was placed in a right shoulder immobilizer with the elbow flexed at 90. Splint Assessment: Neurovascularly intact post splint placement with good fit. I administered 500 cc normal saline intravenously, Toradol 15 mg IV with complete pain control, and Zofran 4 mg IV. Patient will be admitted to her [facility] and transferred. Splint Assessment: Neurovascularly intact post splint placement with good fit. Patient was initially hypertensive although blood pressure did improve. Departure Diagnosis: Primary Impression: Humerus surgical neck fracture Qualified Code: S42.231A - Closed 3-part fracture of surgical neck of right humerus, initial encounter Additional Impressions: Dislocation of humerus, anterior closed Qualified Code: S43.014A - Dislocation of humerus, anterior closed, right, initial encounter Scalp contusion Leukocytosis Qualified Code: D72.820 - Lymphocytosis Hypertension Qualified Code: I10 - Essential hypertension Condition: CHRISTOPHER Conrad MD Feb 28, 2017 23:50
[2017-02-28 23:57] LABS: ALANINE AMINOTRANSFERASE 21 IU/L (13-69); ALBUMIN 4.3 g/dl (3.3-4.9); ALBUMIN/GLOBULIN RATIO 1.04; ALKALINE PHOSPHATASE 67 IU/L (42-121); ANION GAP 19 (8-16); ASPARTATE AMINO TRANSFERASE 36 IU/L (15-46); BILIRUBIN,INDIRECT 0.5 mg/dl (0-1.1); BILIRUBIN,TOTAL 0.5 mg/dl (0.2-1.3); BLOOD UREA NITROGEN 16 mg/dl (7-20); CALCIUM 9.6 mg/dl (8.4-10.2); CARBON DIOXIDE 29 mmol/L (21-31); CHLORIDE 96 mmol/L (97-110); CREATININE 0.71 mg/dl (0.44-1.00); GLUCOSE 105 mg/dl (70-220); SODIUM 139 mmol/L (135-144); TOTAL PROTEIN 8.4 g/dl (6.1-8.1)
[2017-03-01 00:05] LABS: WHITE BLOOD COUNT 20.6 10^3/ul (4.8-10.8)
[2017-03-01 00:06] LABS: BASOPHIL # 0.1 10^3/ul (0.0-0.1); BASOPHILS % 0.3 % (0.0-2.0); EOSINOPHILS % 0.1 % (0.0-7.0); HEMATOCRIT 45.9 % (37.0-47.0); HEMOGLOBIN 15.6 g/dl (12.0-16.0); LYMPHOCYTES # 1.8 10^3/ul (0.8-2.9); LYMPHOCYTES % 8.6 % (15.0-51.0); MEAN CORPUSCULAR HEMOGLOBIN 31.3 pg (29.0-33.0); MEAN CORPUSCULAR VOLUME 92.2 fl (82.0-101.0); MEAN PLATELET VOLUME 9.5 fl (7.4-10.4); MONOCYTE # 1.4 10^3/ul (0.3-0.9); MONOCYTES % 6.6 % (0.0-11.0); NEUTROPHIL # 17.2 10^3/ul (1.6-7.5); NEUTROPHILS % 83.4 % (39.0-77.0); PLATELET COUNT 295 10^3/UL (140-415); RED BLOOD COUNT 4.98 10^6/ul (4.20-5.40); RED CELL DISTRIBUTION WIDTH 12.3 % (11.5-14.5)
[2017-03-01 00:08] LABS: TROPONIN-I < 0.012 ng/ml (0.00-0.12)
--- NOTE | 2017-03-01 00:31 | RADRPT ---
PROCEDURE: CT Head without. CLINICAL INDICATION: Headaches status post fall. TECHNIQUE: The study was performed utilizing a multi-slice, multidetector CT scanner. Direct spira l 1 mm axial sections were obtained through the head without the use of intravenous contrast materia l. 1 or more of the following dose reduction techniques were utilized: Automated exposure control, adjustment of the mA and/or kV according to patient's size, iterative reconstruction technique. Co jaimie and sagittal reformations were obtained. The images were reviewed on a PACS workstation. RADIATION DOSE: CTDIvol: 44.5 mGyDLP: 810.3 mGy-cm COMPARISON: 10/15/2016 10/08/2016 FINDINGS: There is no intracranial hemorrhage, extra-axial fluid collection, mass lesion, midline shift or hyd rocephalus. There is stable moderate prominence of the cerebral sulci, lateral and third ventricles . There is stable moderate patchy periventricular and subcortical white matter hypodensity. There is mild arteriosclerotic calcification of the parasellar internal carotid arteries. The ortiz-white matter differentiation is preserved. The basal cisterns are patent. The midline structures are int act. The orbits, calvarium and extracranial soft tissues are normal in appearance. The visualized p aranasal sinuses, mastoid air cells and middle ear cavities are normally aerated. IMPRESSION: 1. No acute intracranial abnormality. No intracranial hemorrhage, extra-axial fluid collection, ma ss lesion or hydrocephalous. 2. Stable moderate peripheral and central cerebral volume loss. 3. Stable moderate patchy periventricular and subcortical white matter hypodensity, likely related to chronic microangiopathic changes. RPTAT: HGAS .Greg Oquendo MD, Date Time Electronically viewed and signed by .Greg Oquendo MD, on 03/01/2017 00:30 .S/
[2017-03-01] MEDS ORDERED: RISP2TAB3 PO (01:09)
[2017-03-01] MEDS ORDERED: FLUO20CA22 PO (01:09)
[2017-03-01] MEDS ORDERED: DULO30CA47 PO (01:09)
[2017-03-01] MEDS ORDERED: morphine 4 MG/ML VIAL IV ONE (02:13)
[2017-03-01] MEDS ORDERED: LORAZEPAM 2 MG INJ IV ONE (06:00)
[2017-03-01] MEDS ORDERED: SOD CHLORIDE 0.9% 1,000 ML IV ONE (06:00)
[2017-03-01 06:27] VITALS: BP 137/77; PULSE 105; RESP 14; TEMP 97.3
--- NOTE | 2017-03-01 07:23 | RADRPT ---
PROCEDURE: CT of the right upper extremity CLINICAL INDICATION: Right shoulder pain, fracture TECHNIQUE: Axial images through the right upper extremity without IV contrast. Coronal and sagit sangita reformats. Images were interpreted at an independent PACS workstation. CTDI 39.17 mGy DLP 993.98 mGy-cm One or more of the following dose reduction techniques were used: Automated exposure control Adjustment of the mA and / or kV according to patient size Use of iterative reconstruction technique. COMPARISON: Radiographs of the right shoulder earlier in the day FINDINGS: There is a highly comminuted fracture of the surgical neck of the proximal humerus with marked apex anterior angulation and approximately 2 cm of posterior displacement of the humeral head with respe ct to the humeral shaft. There are comminuted fracture lines involving the greater and lesser tuber osity as well as fracture lines involving the humeral head articular surface. There is approximatel y 2 cm of displacement of the greater tuberosity fragment with respect to the humeral shaft. There is no dislocation of the humeral head. Note is made of significant background osteopenia, somewhat limiting evaluation for any superimposed osseous lesion. There is normal rotator cuff muscle bulk. The tendon insertions are not well assessed on CT. There is a glenohumeral joint effusion with surrounding hematoma. There is a chronic 12 mm intra-articul ar body at the subscapular recess. Limited assessment of the right lung is grossly clear. There is no lymphadenopathy. IMPRESSION: 1. Acute highly comminuted humeral head and neck fracture with marked apex anterior angulation and s ignificant displaced as above. No evidence of humeral head dislocation. 2. Mixed lucent and sclerotic margins of the fracture are probably related to the significant backg round osteopenia and regions of bone impaction, though a superimposed bone lesion is not excluded. Continued follow-up is advised to demonstrate appropriate healing. MRI may provide additional detai l as clinically warranted. RPTAT: UU .Gerry Aviles MD, Date Time Electronically viewed and signed by .Gerry Aviles MD, MD on 03/01/2017 07:23 .K/
== END 2017-03-01 08:11 | disposition short-term general hospital (02) ==
LOC: E/R 20:55
DX: S42.231A 3-part fracture of surgical neck of right humerus, initial encounter for closed fracture (principal); S43.014A Anterior dislocation of right humerus, initial encounter; S00.03XA Contusion of scalp, initial encounter; D72.820 Lymphocytosis (symptomatic); I10 Essential (primary) hypertension; W01.190A Fall on same level from slipping, tripping and stumbling with subsequent striking against furniture, initial encounter; Y92.009 Unspecified place in unspecified non-institutional (private) residence as the place of occurrence of the external cause
CPT/HCPCS: 29105; 36415; 70450; 71010; 73030; 73080; 73200; 80053; 81001; 83690; 84484; 85025; 93005; 96374; 96375; J1885; J2060; J2270; J2405; J7030; J7040; Z7502; Z7610; A4310